=== PATIENT | female | born 1960 | race Caucasian/White ===

== ENCOUNTER 2022-03-31 11:39 | Observation (INO) ==
[~2022-03-31 11:39] MED LIST: Buffered Lidocaine 1% SYRIN 1 ml INTRADERM ONE; Dexamethasone IV 4 MG/ML VIAL 1 ml VIAL ONE; Lactated Ringers 1000 ml BAG 1,000 ML IV SCH; Lidocaine 2% PF 5 ML VIAL ONE; Midazolam 5 mg/5 ml VIAL 1 mg/ml 5 ml VIAL (5 mg) ONE; Ondansetron 4 mg VIAL 2 MG/ML 2 ml VIAL ONE; Phenylephrine IV 10 MG/ML 1 ml VIAL ONE; fentaNYL 100 mcg/2 ml 50 MCG/ML VIAL ONE
[2022-03-31] MEDS ORDERED: ceFAZolin 2 GM in NS PREMIX 2 GM/100 ML BAG IVPB ONE (11:55)
[2022-03-31] MEDS ORDERED: fentaNYL 100 mcg/2 ml 50 MCG/ML VIAL ONE (14:11)
[2022-03-31] MEDS ORDERED: ROPIVACAINE 5 MG/ML 30 ML BTL (0.5%) ONE ×2 (14:11→14:37)
[2022-03-31] MEDS ORDERED: Midazolam 2 mg/2 ml VIAL 1 mg/ml 2 ml VIAL (2 mg) ONE (14:11)
[2022-03-31] MEDS ORDERED: Propofol 10 MG/ML 20 ML BTL ONE (14:30)
[2022-03-31] MEDS ORDERED: Acetaminophen IV 1 GM/100ML 1,000 MG/100 ML BAG IV ONE (14:30)
[2022-03-31] MEDS ORDERED: fentaNYL 100 mcg/2 ml 50 MCG/ML VIAL IV PRN (15:08)
[2022-03-31] MEDS ORDERED: Naloxone 0.4 mg VIAL 0.4 mg/ml 1 ml VIAL IV PRN (15:08)
[2022-03-31] MEDS ORDERED: Ondansetron 4 mg VIAL 2 MG/ML 2 ml VIAL IV PRN ×2 (15:08→16:06)
[2022-03-31] MEDS ORDERED: Dexmedetomidine 200 mcg/2 ml 2 ml VIAL (200 mcg) ONE (15:15)
[2022-03-31] MEDS ORDERED: Lactulose 30 ml UDC PO PRN (16:06)
[2022-03-31] MEDS ORDERED: Ondansetron ODT 4 mg TAB 4 MG TAB PO PRN (16:06)
[2022-03-31] MEDS ORDERED: Magnesium Hydroxide LIQ 30 ML UDC PO PRN (16:06)
[2022-03-31] MEDS ORDERED: Morphine 2 MG/ML SYRINGE IV PRN (16:06)
[2022-03-31] MEDS: Magnesium Hydroxide LIQ 30 ML UDC PO SCH (21:18)
[2022-03-31] MEDS: Lactated Ringers 1000 ml BAG 1,000 ML IV SCH (21:19)
[2022-03-31] MEDS: ceFAZolin 1 GM ADVAN 1 GM in NS 0.9% 50 ML 50 ML IVPB SCH (23:12)
[2022-04-01 06:50] LABS: Hematocrit 39 % (35-47); Hemoglobin 13.5 g/dL (12.0-16.0); Mean Platelet Volume 9.2 fL (7.4-10.4); Platelet Count 139 10^3/uL (150-450)
[2022-04-01 07:04] LABS: Creatinine, Serum 0.67 mg/dL (0.51-0.95); Potassium 3.4 mmol/L (3.5-5.0)
[2022-04-01] MEDS ORDERED: Potassium Chlor 20 meq TAB.ER PO ONE (07:42)
[2022-04-01] MEDS: Lactated Ringers 1000 ml BAG 1,000 ML IV SCH (07:57)
[2022-04-01] MEDS: ceFAZolin 1 GM ADVAN 1 GM in NS 0.9% 50 ML 50 ML IVPB SCH ×2 (07:58→15:02)
[2022-04-01] MEDS: Magnesium Hydroxide LIQ 30 ML UDC PO SCH (08:00)
[2022-04-01] MEDS ORDERED: Vitamin THERAPEUTIC TAB PO SCH (09:00)
[2022-04-01 11:30] VITALS: BP 122/73
== END 2022-04-01 15:45 | disposition home or self-care (01) ==
LOC: OR 11:39 → SSU 11:39
PROVIDERS: ADMIT Orthopaedic Surgery Adult Reconstructive Orthopaedic Surgery; ATTEND Orthopaedic Surgery Adult Reconstructive Orthopaedic Surgery